=== PATIENT | female | born 1985 | race Caucasian/White ===

== ENCOUNTER 2017-11-06 13:01 | Emergency (ER) | payer OTHER ==
[2017-11-06 13:43] VITALS: BP 126/86; PULSE 62; TEMP 98.1; BMI 28.3
--- NOTE | 2017-11-06 15:14 | PDOC ---
History of Present Illness - General Chief Complaint: Bite Stated Complaint: INJURY Time Seen by Provider: 11/06/17 14:37 History Source: Patient Exam Limitations: No Limitations - History of Present Illness Initial Comments: 11/06/17 15:40 32-year-old female presents the ED with a white to the right fifth digit. Patient states she was cleaning at all that is routinely followed by the veterinary clinic when the dog bit her finger while washing him. Patient states dog is fully vaccinated including rabies and normally does not care for this dog. Patient states that today on her tetanus and denies history of immunosuppression. Patient states pain with movement and denies recent injury to the affected area. Timing/Duration: 1-3 hours Severity: mild Associated Symptoms: reports: denies symptoms Past History - Travel Traveled outside of the country in the last 30 days: No - Past Medical History Allergies/Adverse Reactions: Allergies Allergy/AdvReac Type Severity Reaction Status Date / Time No Known Allergies Allergy Verified 11/06/17 13:39 Home Medications: Ambulatory Orders NK [No Known Home Medication] 11/06/17 Asthma: Yes COPD: No - Reproductive History (#): 2 Para: 2 - Immunization History Immunization Up to Date: Yes - Suicide/Smoking/Psychosocial Hx Smoking History: Never smoked Have you smoked in the past 12 months: No Number of Cigarettes Smoked Daily: 0 Information on smoking cessation initiated: No Hx Alcohol Use: No Drug/Substance Use Hx: No Substance Use Type: None Patient Lives Alone: No Review of Systems - Review of Systems Able to Perform ROS?: Yes Constitutional: No: Symptoms Reported Musculoskeletal: Yes: Joint Pain (rt 5th finger) Integumentary: Yes: See HPI *Physical Exam - Vital Signs Last Vital Signs Temp Pulse Resp BP Pulse Ox 98.1 F 62 17 126/86 99 11/06/17 13:35 11/06/17 13:35 11/06/17 13:35 11/06/17 13:35 11/06/17 13:35 - Physical Exam General Appearance: Yes: Nourished, Appropriately Dressed. No: Apparent Distress Extremity: positive: Normal Capillary Refill, Other (Noted 2 cm linear superficial wound to the dorsal aspect of right fifth digit. Surrounding skin intact. No crepitus or deformity of the finger. Patient with noted discomfort upon flexion of the MCP joint.) Medical Decision Making - Medical Decision Making 11/06/17 15:42 Patient injury to his right fifth digit after being bitten by a domesticated dog. Paperwork completed. Patient was ordered for an x-ray of the right fifth digits secondary to location of bite and complains of pain with movement. 11/06/17 15:44 X-ray negative for fracture. Patient to be discharged home recommended to apply ice take Motrin and apply bacitracin to the area *DC/Admit/Observation/Transfer Diagnosis at time of Disposition: Dog bite of finger - Discharge Dispostion Disposition: HOME Condition at time of disposition: Good - Referrals Referrals: Dalila Waite [Primary Care Provider] - - Patient Instructions Printed Discharge Instructions: How to Care for a Domestic Animal Bite Additional Instructions: I recommended to apply ice to area x 3 days to decrease swelling, take Motrin as needed for pain, and apply bacitracin to the area x 3 days daily - Post Discharge Activity
== END 2017-11-06 15:50 | disposition home or self-care (01) ==
LOC: JERFT 13:01
DX: S60.476A Other superficial bite of right little finger, initial encounter (principal); W54.0XXA Bitten by dog, initial encounter; Y93.K3 Activity, grooming and shearing an animal; Y92.89 Other specified places as the place of occurrence of the external cause; Y99.0 Civilian activity done for income or pay
CPT/HCPCS: 73140-TC-RT; 99281-25

== ENCOUNTER 2017-11-15 03:04 | Emergency (ER) | payer OTHER ==
[2017-11-15 04:49] VITALS: TEMP 98.2; BMI 21.0
[2017-11-15] MEDS ORDERED: SODIUM CHLORIDE 1,000 ML IV STA (05:06)
[2017-11-15] MEDS ORDERED: ONDANSETRON 4 MG/2 ML VIAL IVPUSH ONE (05:06)
[2017-11-15 05:19] LABS: URINE APPEARANCE CLEAR; URINE BILIRUBIN NEGATIVE (NEGATIVE); URINE BLOOD 1+ (NEGATIVE); URINE COLOR LTYELLOW; URINE GLUCOSE (UA) NEGATIVE (NEGATIVE); URINE KETONE NEGATIVE (NEGATIVE); URINE NITRITE NEGATIVE (NEGATIVE); URINE PROTEIN NEGATIVE (NEGATIVE); URINE UROBILINOGEN NEGATIVE mg/dL (0.2-1.0)
[2017-11-15 05:22] LABS: URINE LEUK ESTERASE 1+ (NEGATIVE)
[2017-11-15 05:28] LABS: EPI CELLS RARE /HPF (FEW); URINE MUCUS RARE
[2017-11-15] MEDS ORDERED: ONDANSETRON 4 MG/2 ML VIAL ONE (05:30)
--- NOTE | 2017-11-15 05:47 | PDOC ---
History of Present Illness - General Chief Complaint: Pain, Acute Stated Complaint: ABDOMINAL PAIN Time Seen by Provider: 11/15/17 04:43 - History of Present Illness Initial Comments: 11/15/17 05:49 Patient is a 32-year-old female with past medical history of asthma, who presents emergency department complaining of abdominal pain. Patient states that she's had abdominal pain for approximately one week. She notes that it over her bladder. She states that it hurts when she pees and she sees blood in her urine. Also admits to frequency and urgency. She states that the pain in her abdomen his gotten worse. Patient states that the pain goes to her back. She also states that she has pain when she poops and she feels like there is a skin flap over the area. Denies fevers, chills, recent travel, recent antibiotic use, nausea, vomiting, diarrhea, constipation, shortness of breath and chest pain. Past History - Travel Traveled outside of the country in the last 30 days: No Close contact w/someone who was outside of country & ill: No - Past Medical History Allergies/Adverse Reactions: Allergies Allergy/AdvReac Type Severity Reaction Status Date / Time No Known Allergies Allergy Verified 11/06/17 13:39 Home Medications: Ambulatory Orders Nitrofurantoin Monohyd/M-Cryst [Macrobid -] 100 mg PO BID #14 capsule 11/15/17 Phenazopyridine HCl [Pyridium] 200 mg PO TID #6 tablet 11/15/17 Asthma: Yes COPD: No - Reproductive History Is Patient Now?: No (#): 2 Para: 2 - Immunization History Immunization Up to Date: Yes - Suicide/Smoking/Psychosocial Hx Smoking History: Never smoked Have you smoked in the past 12 months: No Number of Cigarettes Smoked Daily: 0 Hx Alcohol Use: No Drug/Substance Use Hx: No Substance Use Type: None Review of Systems - Review of Systems Able to Perform ROS?: Yes Comments:: 11/15/17 06:49 CONSTITUTIONAL: Absent: fever, chills, diaphoresis, generalized weakness, malaise, loss of appetite HEENT: Absent: rhinorrhea, nasal congestion, throat pain, throat swelling, difficulty swallowing, mouth swelling, ear pain, eye pain, visual Changes CARDIOVASCULAR: Absent: chest pain, loss of consciousness, palpitations, irregular heart rate, peripheral edema RESPIRATORY: Absent: cough, shortness of breath, dyspnea with exertion, orthopnea, wheezing, stridor, hemoptysis GASTROINTESTINAL: Absent: abdominal pain, abdominal distension, nausea, vomiting, diarrhea, constipation, melena, hematochezia GENITOURINARY: Present: dysuria, frequency, urgency, hesitancy, hematuria, flank pain Absent: genital pain MUSCULOSKELETAL: Absent: myalgia, arthralgia, joint swelling SKIN: Absent: rash, itching, pallor HEMATOLOGIC/IMMUNOLOGIC: Absent: easy bleeding, easy bruising, lymphadenopathy, frequent infections ENDOCRINE: Absent: unexplained weight gain, unexplained weight loss, heat intolerance, cold intolerance NEUROLOGIC: Absent: headache, focal weakness or paresthesias, dizziness, unsteady gait, seizure, mental status changes, bladder or bowel incontinence PSYCHIATRIC: Absent: anxiety, depression, suicidal or homicidal ideation, hallucinations. Is the patient limited Monegasque proficient: No *Physical Exam - Vital Signs Last Vital Signs Temp Pulse Resp BP Pulse Ox 98.2 F 71 111/83 98 11/15/17 04:46 11/15/17 04:46 11/15/17 04:46 11/15/17 04:46 - Physical Exam Comments: 11/15/17 06:49 GENERAL: Well developed, well nourished. Awake and alert. No acute distress. HEENT: Normocephalic, atraumatic. PERRLA, EOMI. No conjunctival pallor. Sclera are non- icteric. Moist mucous membranes. Oropharynx is clear. NECK: Supple. Full ROM. No JVD. Carotid pulses 2+ and symmetric, without bruits. No thyromegaly. No lymphadenopathy. CARDIOVASCULAR: Regular rate and rhythm. No murmurs, rubs, or gallops. Distal pulses are 2+ and symmetric. PULMONARY: No evidence of respiratory distress. Lungs clear to auscultation bilaterally. No wheezing, rales or rhonchi. ABDOMINAL: TTP of suprapubic area, LLQ, RLQ. (+) psoas and obturator signs. Guarding with palpation of the lower abdomen. Soft. Non-distended. No rebound. No organomegaly. Normoactive bowel sounds. MUSCULOSKELETAL CVA tenderness on the R. Normal range of motion at all joints. No bony deformities or tenderness. EXTREMITIES: No cyanosis. No clubbing. No edema. No calf tenderness. SKIN: Warm and dry. Normal capillary refill. No rashes. No jaundice. NEUROLOGICAL: Alert, awake, appropriate. Cranial nerves 2-12 intact. No deficits to light touch and temperature in face, upper extremities and lower extremities. No motor deficits in the in face, upper extremities and lower extremities. Normoreflexic in the upper and lower extremities. Normal speech. Toes are down- going bilaterally. Gait is normal without ataxia. PSYCHIATRIC: Cooperative. Good eye contact. Appropriate mood and affect. ED Treatment Course - LABORATORY CBC & Chemistry Diagram: 11/15/17 05:35 11/15/17 05:35 - ADDITIONAL ORDERS Additional order review: Laboratory Results 11/15/17 11/15/17 05:10 05:10 Urine Color Ltyellow Urine Appearance Clear Urine pH 6.0 Ur Specific [place] 1.014 Urine Protein Negative Urine Glucose (UA) Negative Urine Ketones Negative Urine Blood 1+ H Urine Nitrite Negative Urine Bilirubin Negative Urine Urobilinogen Negative Ur Leukocyte Esterase 1+ H D Urine WBC (Auto) 2 Urine RBC (Auto) 9 Ur Epithelial Cells Rare Urine Mucus Rare Urine HCG, Qual Negative - Medications Given in the ED: ED Medications Discontinued Medications Generic Name Dose Route Start Last Admin Trade Name Freq PRN Reason Stop Dose Admin Ondansetron HCl 4 mg 11/15/17 05:06 11/15/17 05:35 Zofran Injection IVPUSH 11/15/17 05:07 4 mg ONCE ONE Administration Medical Decision Making - Medical Decision Making 11/15/17 05:51 Patient is a 32-year-old female with past medical history of asthma who presents emergency Department 5 days of abdominal pain and urinary symptoms. Differential diagnosis includes but is not limited to UTI, kidney stone, pyelo, appendicitis, colitis, given peritoneal signs on exam. We'll obtain basic lab work, urine and CT abdomen and pelvis with IV contrast. Will reevaluate. 11/15/17 06:52 Lab work is unremarkable at this time. UA shows +1 leuk esterase with white blood cells in the urine. Patient has a probable UTI. We'll proceed with CT at this time this patient still has abdominal pain. Sign out given to Raiza Sarah [employer] FR[employer] ASSEMBLER. Pt. is pending CT scan and dispo based on scan results. *DC/Admit/Observation/Transfer Diagnosis at time of Disposition: UTI (urinary tract infection) - Discharge Dispostion Condition at time of disposition: Good - Prescriptions Prescriptions: Nitrofurantoin Monohyd/M-Cryst [Macrobid -] 100 mg PO BID #14 capsule Phenazopyridine HCl [Pyridium] 200 mg PO TID #6 tablet - Referrals Referrals: Dalila Waite [Primary Care Provider] - - Patient Instructions Printed Discharge Instructions: DI for Urinary Tract Infection (UTI) Additional Instructions: Take antibiotic as prescribed and take tylenol or motrin for pain. - Post Discharge Activity
[2017-11-15 05:48] LABS: BASO % 0.5 % (0-2.0); EOS % 5.3 % (0-4.5); HEMATOCRIT 39.8 % (32.4-45.2); HEMOGLOBIN 13.4 GM/dL (10.7-15.3); LYMPH % 35.2 % (8-40); MCH 30.9 pg (25.7-33.7); MCHC 33.6 g/dl (32.0-36.0); MEAN PLT VOLUME 10.3 fl (7.5-11.1); MONO % 5.9 % (3.8-10.2); NEUT % 53.1 % (42.8-82.8); PLATELET COUNT 190 K/MM3 (134-434); RBC 4.32 M/mm3 (3.60-5.2); RDW 12.8 % (11.6-15.6); WHITE BLOOD COUNT 6.5 K/mm3 (4.0-10.0)
[2017-11-15 06:01] LABS: INR 0.94 (0.82-1.09); PROTHROMBIN TIME (PATIENT) 10.6 SEC (9.98-11.88)
[2017-11-15 06:14] LABS: ALBUMIN 3.4 g/dl (3.4-5.0); ALK PHOS 93 U/L (45-117); ANION GAP 8 (8-16); BILIRUBIN,TOTAL 0.3 mg/dL (0.2-1.0); BLOOD UREA NITROGEN 8 mg/dL (7-18); CALCIUM 7.6 mg/dL (8.5-10.1); CHLORIDE 107 mmol/L (98-107); CO2 25 mmol/L (21-32); CREATININE 0.6 mg/dL (0.55-1.02); GLUCOSE,RANDOM 91 mg/dL (74-106); SGOT/AST 13 U/L (15-37); SGPT/ALT 22 U/L (12-78); SODIUM 140 mmol/L (136-145); TOT PROT 7.3 g/dl (6.4-8.2)
--- NOTE | 2017-11-15 07:29 | PDOC ---
*Physical Exam - Vital Signs Last Vital Signs Temp Pulse Resp BP Pulse Ox 98.2 F 71 111/83 98 11/15/17 04:46 11/15/17 04:46 11/15/17 04:46 11/15/17 04:46 ED Treatment Course - LABORATORY CBC & Chemistry Diagram: 11/15/17 05:35 11/15/17 05:35 - ADDITIONAL ORDERS Additional order review: Laboratory Results 11/15/17 11/15/17 11/15/17 05:39 05:35 05:35 PT with INR 10.60 INR 0.94 Sodium 140 Potassium 4.0 Chloride 107 Carbon Dioxide 25 Anion Gap 8 BUN 8 Creatinine 0.6 Creat Clearance w eGFR > 60 Random Glucose 91 Calcium 7.6 L Total Bilirubin 0.3 D AST 13 L ALT 22 Alkaline Phosphatase 93 Total Protein 7.3 Albumin 3.4 Lipase 178 Urine Color Urine Appearance Urine pH Ur Specific [place] Urine Protein Urine Glucose (UA) Urine Ketones Urine Blood Urine Nitrite Urine Bilirubin Urine Urobilinogen Ur Leukocyte Esterase Urine WBC (Auto) Urine RBC (Auto) Ur Epithelial Cells Urine Mucus Urine HCG, Qual 11/15/17 11/15/17 05:10 05:10 PT with INR INR Sodium Potassium Chloride Carbon Dioxide Anion Gap BUN Creatinine Creat Clearance w eGFR Random Glucose Calcium Total Bilirubin AST ALT Alkaline Phosphatase Total Protein Albumin Lipase Urine Color Ltyellow Urine Appearance Clear Urine pH 6.0 Ur Specific [place] 1.014 Urine Protein Negative Urine Glucose (UA) Negative Urine Ketones Negative Urine Blood 1+ H Urine Nitrite Negative Urine Bilirubin Negative Urine Urobilinogen Negative Ur Leukocyte Esterase 1+ H D Urine WBC (Auto) 2 Urine RBC (Auto) 9 Ur Epithelial Cells Rare Urine Mucus Rare Urine HCG, Qual Negative 11/15/17 05:35 RBC 4.32 MCV 92.0 MCHC 33.6 RDW 12.8 MPV 10.3 Neutrophils % 53.1 Lymphocytes % 35.2 Monocytes % 5.9 Eosinophils % 5.3 H D Basophils % 0.5 - Medications Given in the ED: ED Medications Discontinued Medications Generic Name Dose Route Start Last Admin Trade Name Freq PRN Reason Stop Dose Admin Sodium Chloride 1,000 mls @ 1,000 mls/hr 11/15/17 05:06 11/15/17 05:35 Normal Saline - IV 11/15/17 06:05 1,000 mls/hr ASDIR STA Administration Ondansetron HCl 4 mg 11/15/17 05:06 11/15/17 05:35 Zofran Injection IVPUSH 11/15/17 05:07 4 mg ONCE ONE Administration Medical Decision Making - Medical Decision Making 11/15/17 07:29 Patient received in sign out from GITA Snyder. Patient here with abdominal pain along with urinary complaints. Patient pending CT of the abdomen with IV contrast to rule out appendicitis, renal colic. 11/15/17 07:29 Laboratory Tests 11/15/17 05:10 Urine Blood 1+ H Ur Leukocyte Esterase 1+ H D Urine WBC (Auto) 2 Urine RBC (Auto) 9 11/15/17 10:31 Ct of the abdomen - for appendicitis or renal colic. Pt to be discharged home jesu gomez *DC/Admit/Observation/Transfer Diagnosis at time of Disposition: UTI (urinary tract infection) - Discharge Dispostion Condition at time of disposition: Good - Referrals Referrals: Dalila Waite [Primary Care Provider] - - Patient Instructions Printed Discharge Instructions: DI for Urinary Tract Infection (UTI) Additional Instructions: Take antibiotic as prescribed and take tylenol or motrin for pain. - Post Discharge Activity
[2017-11-15 10:50] VITALS: BP 124/74; PULSE 64
== END 2017-11-15 10:50 | disposition home or self-care (01) ==
LOC: JER 03:04
PROC: 3E033GC Introduction of Other Therapeutic Substance into Peripheral Vein, Percutaneous Approach (ICD-10-PCS; principal; 2017-11-15)
DX: N39.0 Urinary tract infection, site not specified (principal)
CPT/HCPCS: 36415; 74177-TC; 80053; 81003; 81015; 83690; 84703; 85025; 85610; 87086; 96374; 99285-25

== ENCOUNTER 2018-10-24 21:56 | Emergency (ER) | payer OTHER ==
[2018-10-24 22:09] VITALS: BP 115/65; PULSE 91; TEMP 98; BMI 28.3
--- NOTE | 2018-10-24 22:46 | PDOC ---
History of Present Illness - General History Source: Patient Exam Limitations: No Limitations - History of Present Illness Initial Comments: 10/24/18 22:56 The patient is a 33 year old female, , with a significant PMH of asthma who presents to the emergency department with lower back pain radiating to the back of the bilateral lower extremities since yesterday. Patient states the lower back pain is exacerbated when bending over and alleviated when sitting or lying flat. 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 Patient saw her INSTRUCTIONAL PARAPROFESSIONAL approximately 1 week and had an ultrasound then. Patient reports she is 10 weeks . The patient admits to mild vaginal spotting today but denies chest pain, shortness of breath, headache and dizziness. Denies fever, chills, nausea, vomit, diarrhea and constipation. Denies dysuria, frequency, urgency and hematuria. Allergies: NKA Past surgical history: None reported. Social history: No reported alcohol, drug or cigarette use. INSTRUCTIONAL PARAPROFESSIONAL: Dr. Zelaya <Penny Goncalves - Last Filed: 10/24/18 22:56> <Ceci Wilson - Last Filed: 10/25/18 06:59> - General Chief Complaint: Back Pain Stated Complaint: BACK PAIN @ 10WKS PREG Time Seen by Provider: 10/24/18 22:45 Past History <Penny Goncalves - Last Filed: 10/24/18 22:56> - Past Medical History Asthma: Yes COPD: No - Reproductive History (#): 2 Para: 2 - Immunization History Immunization Up to Date: Yes - Suicide/Smoking/Psychosocial Hx Smoking History: Never smoked Have you smoked in the past 12 months: No Number of Cigarettes Smoked Daily: 0 Information on smoking cessation initiated: No Hx Alcohol Use: No Drug/Substance Use Hx: No Substance Use Type: None <Ceci Wilson - Last Filed: 10/25/18 06:59> - Past Medical History Allergies/Adverse Reactions: Allergies Allergy/AdvReac Type Severity Reaction Status Date / Time No Known Allergies Allergy Verified 10/24/18 22:09 Home Medications: Ambulatory Orders Nitrofurantoin Monohyd/M-Cryst [Macrobid -] 100 mg PO BID #14 capsule 11/15/17 Phenazopyridine HCl [Pyridium] 200 mg PO TID #6 tablet 11/15/17 Review of Systems - Review of Systems Able to Perform ROS?: Yes Comments:: 10/24/18 23:01 ADULT ROS GENERAL/CONSTITUTIONAL: No fever or chills. No weakness. HEAD, EYES, EARS, NOSE AND THROAT: No change in vision. No ear pain or discharge. No sore throat. CARDIOVASCULAR: No chest pain or shortness of breath. RESPIRATORY: No cough, wheezing, or hemoptysis. GASTROINTESTINAL: No nausea, vomiting, diarrhea or constipation. GENITOURINARY: No dysuria, frequency, or change in urination. MUSCULOSKELETAL: (+) lower back pain radiating to the backs of both legs. SKIN: No rash NEUROLOGIC: No headache, vertigo, loss of consciousness, or change in strength/ sensation. ENDOCRINE: No increased thirst. No abnormal weight change. HEMATOLOGIC/LYMPHATIC: No anemia, easy bleeding, or history of blood clots. ALLERGIC/IMMUNOLOGIC: No hives or skin allergy. <Penny Goncalves - Last Filed: 10/24/18 22:56> *Physical Exam - Vital Signs Last Vital Signs Temp Pulse Resp BP Pulse Ox 98.0 F 91 H 16 115/65 100 10/24/18 22:07 10/24/18 22:07 10/24/18 22:07 10/24/18 22:07 10/24/18 22:07 - Physical Exam Comments: 10/24/18 23:02 ADULT EXAM GENERAL: Awake, alert, and fully oriented, in no acute distress HEAD: No signs of trauma EYES: PERRLA, EOMI, sclera anicteric, conjunctiva clear ENT: Auricles normal inspection, hearing grossly normal, nares patent, oropharynx clear without exudates. Moist mucosa NECK: Normal ROM, supple, no lymphadenopathy, JVD, or masses LUNGS: Breath sounds equal, clear to auscultation bilaterally. No wheezes, and no crackles HEART: Regular rate and rhythm, normal S1 and S2, no murmurs, rubs or gallops BACK: No flank pain. No spinal tenderness. ABDOMEN: Soft, nontender, normoactive bowel sounds. No guarding, no rebound. No masses EXTREMITIES: Normal range of motion, no edema. No clubbing or cyanosis. No cords, erythema, or tenderness NEUROLOGICAL: Cranial nerves II through XII grossly intact. (+) Straight leg raise with pain running down the backs of both legs at 45 degrees. SKIN: Warm, Dry, normal turgor, no rashes or lesions noted. <Penny Goncalves - Last Filed: 10/24/18 22:56> - Vital Signs Last Vital Signs Temp Pulse Resp BP Pulse Ox 98.0 F 91 H 16 115/65 100 10/24/18 22:07 10/24/18 22:07 10/24/18 22:07 10/24/18 22:07 10/24/18 22:07 <Ceci Wilson - Last Filed: 10/25/18 06:59> Moderate Sedation - Procedure Monitoring Vital Signs: Procedure Monitoring Vital Signs Temperature 98.0 F 10/24/18 22:07 Pulse Rate 91 H 10/24/18 22:07 Respiratory Rate 16 10/24/18 22:07 Blood Pressure 115/65 10/24/18 22:07 O2 Sat by Pulse Oximetry (%) 100 10/24/18 22:07 <Penny Goncalves - Last Filed: 10/24/18 22:56> - Procedure Monitoring Vital Signs: Procedure Monitoring Vital Signs Temperature 98.0 F 10/24/18 22:07 Pulse Rate 91 H 10/24/18 22:07 Respiratory Rate 16 10/24/18 22:07 Blood Pressure 115/65 10/24/18 22:07 O2 Sat by Pulse Oximetry (%) 100 10/24/18 22:07 <Ceci Wilson - Last Filed: 10/25/18 06:59> ED Treatment Course - LABORATORY CBC & Chemistry Diagram: 10/24/18 23:25 10/24/18 23:25 <Ceci Wilson - Last Filed: 10/25/18 06:59> Medical Decision Making - Medical Decision Making 10/25/18 06:58 O positive bloood type; pt given tylenol for the back pain and asked to follow with neurology; bedisde sono shows a fetus with good Heart tones.; Exam normal. No vag bleeding at this time. UA normal. <Ceci Wilson - Last Filed: 10/25/18 06:59> *DC/Admit/Observation/Transfer - Attestations Scribe Attestion: 10/24/18 23:03 Documentation prepared by Penny Goncalves, acting as medical administrative specialist for Ceci Wilson MD. <Penny Goncalves - Last Filed: 10/24/18 22:56> - Discharge Dispostion Decision to Admit order: No <Ceci Wilson - Last Filed: 10/25/18 06:59> Diagnosis at time of Disposition: Sciatica - Discharge Dispostion Disposition: HOME Condition at time of disposition: Improved - Referrals Referrals: Dalila Waite [Primary Care Provider] - Jony Stewart MD [Staff Physician] - - Patient Instructions Printed Discharge Instructions: DI for Sciatica - Post Discharge Activity
[2018-10-24 23:48] LABS: BASO % 0.5 % (0-2.0); EOS % 2.6 % (0-4.5); HEMATOCRIT 35.2 % (32.4-45.2); HEMOGLOBIN 12.6 GM/dL (10.7-15.3); LYMPH % 19.2 % (8-40); MCH 32.4 pg (25.7-33.7); MEAN PLT VOLUME 10.3 fl (7.5-11.1); MONO % 5.5 % (3.8-10.2); NEUT % 72.2 % (42.8-82.8); PLATELET COUNT 159 K/MM3 (134-434); RBC 3.91 M/mm3 (3.60-5.2); RDW 13.2 % (11.6-15.6); WHITE BLOOD COUNT 8.2 K/mm3 (4.0-10.0)
[2018-10-24] MEDS ORDERED: ACETAMINOPHEN 325 MG TABLET (FP) PO ONE (23:50)
[2018-10-24] MEDS ORDERED: POLYETHYLENE GLYCOL 3350 119 GM BTL PO ONE (23:56)
[2018-10-25] MEDS ORDERED: ACETAMINOPHEN 325 MG TABLET (FP) ONE (00:02)
[2018-10-25 00:56] LABS: ALBUMIN 3.4 g/dl (3.4-5.0); ALK PHOS 96 U/L (45-117); ANION GAP 8 MMOL/L (8-16); BILIRUBIN,TOTAL 0.6 mg/dL (0.2-1); BLOOD UREA NITROGEN 12 mg/dL (7-18); CALCIUM 8.2 mg/dL (8.5-10.1); CHLORIDE 106 mmol/L (98-107); CO2 22 mmol/L (21-32); CREATININE 0.7 mg/dL (0.55-1.3); GLUCOSE,RANDOM 91 mg/dL (74-106); POTASSIUM 3.6 mmol/L (3.5-5.1); SGOT/AST 16 U/L (15-37); SGPT/ALT 17 U/L (13-61); SODIUM 136 mmol/L (136-145); TOT PROT 6.8 g/dl (6.4-8.2)
[2018-10-25 01:20] LABS: URINE APPEARANCE SLCLOUDY; URINE BILIRUBIN NEGATIVE (<2.0 mg/dL); URINE COLOR LTYELLOW; URINE GLUCOSE (UA) NEGATIVE (NEGATIVE); URINE KETONE NEGATIVE (NEGATIVE); URINE LEUK ESTERASE TRACE (NEGATIVE); URINE NITRITE NEGATIVE (NEGATIVE); URINE PROTEIN NEGATIVE (NEGATIVE); URINE UROBILINOGEN NEGATIVE mg/dL (0.2-1.0)
[2018-10-25 01:35] LABS: EPI CELLS RARE /HPF (FEW); URINE BACTERIA RARE /hpf (NONE SEEN); URINE MUCUS RARE
== END 2018-10-25 02:35 | disposition home or self-care (01) ==
LOC: JER 21:56
PROC: BY49ZZZ Ultrasonography of First Trimester, Single Fetus (ICD-10-PCS; principal; 2018-10-24)
DX: O26.891 Other specified pregnancy related conditions, first trimester (principal); O99.351 Diseases of the nervous system complicating pregnancy, first trimester; M54.42 Lumbago with sciatica, left side; M54.41 Lumbago with sciatica, right side; Z3A.10 10 weeks gestation of pregnancy
CPT/HCPCS: 36415; 76801-TC; 80053; 81003; 81015; 85025; 86850; 86900; 86901; 99282-25

== ENCOUNTER 2018-12-13 | Emergency (ER) | payer OTHER ==
[2018-12-13 00:34] VITALS: BP 128/77; PULSE 77; TEMP 98.4; BMI 36.2
--- NOTE | 2018-12-13 00:49 | PDOC ---
History of Present Illness - History of Present Illness Initial Comments: The patient is a 33 year old female, , currently 18 weeks, with a significant PMHx of asthma who presents to the emergency department with vaginal bleeding, cramping earlier today. Patient states that earlier she went to the bathroom and noted stringy clots after wiping. She also notes 1 episode of nbnn vomit. uncomplicated otherwise. The patient denies chest pain, shortness of breath, headache and dizziness. Denies fever, chills, nausea, diarrhea and constipation. Denies dysuria, frequency, urgency. Allergies: NKA Past surgical history: None reported. Social history: No reported alcohol, drug or cigarette use. PCP: Dr. Zelaya <Destinee Mcgovern - Last Filed: 12/13/18 01:33> <Mandie Quezada - Last Filed: 12/14/18 01:30> - General Chief Complaint: Vaginal Bleeding Stated Complaint: 17 WEEKS /VAGINAL BLEEDING Time Seen by Provider: 12/13/18 00:35 Past History <Destinee Mcgovern - Last Filed: 12/13/18 01:33> - Past Medical History Asthma: Yes COPD: No - Reproductive History (#): 2 Para: 2 Therapeutic (s) & number: No Spontaneous : 0 - Immunization History Immunization Up to Date: Yes - Suicide/Smoking/Psychosocial Hx Smoking History: Unknown if ever smoked Have you smoked in the past 12 months: No Number of Cigarettes Smoked Daily: 0 Hx Alcohol Use: No Drug/Substance Use Hx: No Substance Use Type: None <Mandie Quezada - Last Filed: 12/14/18 01:30> - Past Medical History Allergies/Adverse Reactions: Allergies Allergy/AdvReac Type Severity Reaction Status Date / Time No Known Allergies Allergy Verified 10/24/18 22:09 Home Medications: Ambulatory Orders Nitrofurantoin Monohyd/M-Cryst [Macrobid -] 100 mg PO BID #14 capsule 11/15/17 Phenazopyridine HCl [Pyridium] 200 mg PO TID #6 tablet 11/15/17 Review of Systems - Review of Systems Comments:: GENERAL/CONSTITUTIONAL: No fever or chills. No weakness. HEAD, EYES, EARS, NOSE AND THROAT: No change in vision. No ear pain or discharge. No sore throat. CARDIOVASCULAR: No chest pain or shortness of breath. RESPIRATORY: No cough, wheezing, or hemoptysis. GASTROINTESTINAL: +pelvic cramping. No nausea, vomiting, diarrhea or constipation. GENITOURINARY: +vaginal bleeding. No dysuria, frequency, or change in urination. MUSCULOSKELETAL: No joint or muscle swelling or pain. No neck or back pain. SKIN: No rash NEUROLOGIC: No headache, vertigo, loss of consciousness, or change in strength/ sensation. ENDOCRINE: No increased thirst. No abnormal weight change. HEMATOLOGIC/LYMPHATIC: No anemia, easy bleeding, or history of blood clots. ALLERGIC/IMMUNOLOGIC: No hives or skin allergy. <Destinee Mcgovern - Last Filed: 12/13/18 01:33> *Physical Exam - Vital Signs Last Vital Signs Temp Pulse Resp BP Pulse Ox 98.4 F 77 20 128/77 99 12/13/18 00:32 12/13/18 00:32 12/13/18 00:32 12/13/18 00:32 12/13/18 00:32 <Destinee Mcgovern - Last Filed: 12/13/18 01:33> - Vital Signs Last Vital Signs Temp Pulse Resp BP Pulse Ox 98.4 F 77 20 128/77 99 12/13/18 00:32 12/13/18 00:32 12/13/18 00:32 12/13/18 00:32 12/13/18 00:32 - Physical Exam Comments: GENERAL: Awake, alert, and fully oriented, in no acute distress HEAD: No signs of trauma EYES: PERRLA, EOMI, sclera anicteric, conjunctiva clear ENT: Auricles normal inspection, hearing grossly normal, nares patent, oropharynx clear without exudates. Dry mucosa NECK: Normal ROM, supple, no lymphadenopathy, JVD, or masses LUNGS: Breath sounds equal, clear to auscultation bilaterally. No wheezes, and no crackles HEART: Regular rate and rhythm, normal S1 and S2, no murmurs, rubs or gallops ABDOMEN: Soft, nontender, normoactive bowel sounds. No guarding, no rebound. No masses EXTREMITIES: Normal range of motion, no edema. No clubbing or cyanosis. No cords, erythema, or tenderness NEUROLOGICAL: Cranial nerves II through XII grossly intact. Normal speech, normal gait. Motor and sensation intact SKIN: Warm, Dry, normal turgor, no rashes or lesions noted. : No external lesions. Trace blood in the vault. Os closed. Mild uterine tenderness. <Mandie Quezada - Last Filed: 12/14/18 01:30> Moderate Sedation - Procedure Monitoring Vital Signs: Procedure Monitoring Vital Signs Temperature 98.4 F 12/13/18 00:32 Pulse Rate 77 12/13/18 00:32 Respiratory Rate 20 12/13/18 00:32 Blood Pressure 128/77 12/13/18 00:32 O2 Sat by Pulse Oximetry (%) 99 12/13/18 00:32 <Destinee Mcgovern - Last Filed: 12/13/18 01:33> - Procedure Monitoring Vital Signs: Procedure Monitoring Vital Signs Temperature 98.4 F 12/13/18 00:32 Pulse Rate 77 12/13/18 00:32 Respiratory Rate 20 12/13/18 00:32 Blood Pressure 128/77 12/13/18 00:32 O2 Sat by Pulse Oximetry (%) 99 12/13/18 00:32 <Mandie Quezada - Last Filed: 12/14/18 01:30> ED Treatment Course - LABORATORY CBC & Chemistry Diagram: 12/13/18 01:05 12/13/18 01:05 <Destinee Mcgovern - Last Filed: 12/13/18 01:33> - LABORATORY CBC & Chemistry Diagram: 12/13/18 01:05 12/13/18 01:05 <Mandie Quezada - Last Filed: 12/14/18 01:30> Medical Decision Making - Medical Decision Making 12/13/18 01:00 Pt currently approx 18 WGA with episode of bleeding, associated with episode of vomiting and cramping since then. She appears mildly dehydrated on exam. Will give IV fluids and send for ultrasound. <Mandie Quezada - Last Filed: 12/14/18 01:30> *DC/Admit/Observation/Transfer - Attestations Scribe Attestion: 12/13/18 01:03 Documentation prepared by Destinee Mcgovern, acting as medical transport specialist for Mandie Quezada MD. <Destinee Mcgovern - Last Filed: 12/13/18 01:33> <Mandie Quezada - Last Filed: 12/14/18 01:30> Diagnosis at time of Disposition: Threatened - Discharge Dispostion Disposition: HOME Condition at time of disposition: Stable - Referrals Referrals: Dalila Waite [Primary Care Provider] - - Patient Instructions Printed Discharge Instructions: DI for Threatened - Post Discharge Activity
[2018-12-13] MEDS ORDERED: ACETAMINOPHEN 1000 MG/100 ML VIAL (NON FORMULARY) IVPB ONE (00:56)
[2018-12-13] MEDS ORDERED: SODIUM CHLORIDE 1,000 ML IV STA (00:57)
[2018-12-13] MEDS ORDERED: ACETAMINOPHEN INJECTION 100 ML IVPB ONE (01:09)
[2018-12-13 01:18] LABS: BASO % 0.9 % (0-2.0); EOS % 3.3 % (0-4.5); HEMATOCRIT 36.6 % (32.4-45.2); HEMOGLOBIN 13.1 GM/dL (10.7-15.3); LYMPH % 31.6 % (8-40); MCH 32.9 pg (25.7-33.7); MCHC 35.8 g/dl (32.0-36.0); MEAN CELL VOLUME 91.9 fl (80-96); MEAN PLT VOLUME 10.1 fl (7.5-11.1); MONO % 5.7 % (3.8-10.2); NEUT % 58.5 % (42.8-82.8); PLATELET COUNT 179 K/MM3 (134-434); RBC 3.98 M/mm3 (3.60-5.2); RDW 12.9 % (11.6-15.6); WHITE BLOOD COUNT 7.9 K/mm3 (4.0-10.0)
[2018-12-13 02:05] LABS: ALBUMIN 3.1 g/dl (3.4-5.0); ALK PHOS 84 U/L (45-117); ANION GAP 6 MMOL/L (8-16); BILIRUBIN,TOTAL 0.1 mg/dL (0.2-1); BLOOD UREA NITROGEN 8 mg/dL (7-18); CALCIUM 8.3 mg/dL (8.5-10.1); CHLORIDE 108 mmol/L (98-107); CO2 25 mmol/L (21-32); CREATININE 0.5 mg/dL (0.55-1.3); GLUCOSE,RANDOM 93 mg/dL (74-106); POTASSIUM 3.7 mmol/L (3.5-5.1); SGOT/AST 15 U/L (15-37); SGPT/ALT 15 U/L (13-61); SODIUM 138 mmol/L (136-145); TOT PROT 6.7 g/dl (6.4-8.2)
--- NOTE | 2018-12-13 03:27 | PDOC ---
*Physical Exam - Vital Signs Last Vital Signs Temp Pulse Resp BP Pulse Ox 98.4 F 77 20 128/77 99 12/13/18 00:32 12/13/18 00:32 12/13/18 00:32 12/13/18 00:32 12/13/18 00:32 ED Treatment Course - LABORATORY CBC & Chemistry Diagram: 12/13/18 01:05 12/13/18 01:05 - ADDITIONAL ORDERS Additional order review: Laboratory Results 12/13/18 01:05 Sodium 138 Potassium 3.7 Chloride 108 H Carbon Dioxide 25 Anion Gap 6 L BUN 8 Creatinine 0.5 L Creat Clearance w eGFR > 60 Random Glucose 93 Calcium 8.3 L Total Bilirubin 0.1 L AST 15 ALT 15 Alkaline Phosphatase 84 Total Protein 6.7 Albumin 3.1 L Beta HCG, Quant 8293.0 12/13/18 01:05 RBC 3.98 MCV 91.9 MCHC 35.8 RDW 12.9 MPV 10.1 Neutrophils % 58.5 Lymphocytes % 31.6 D Monocytes % 5.7 Eosinophils % 3.3 Basophils % 0.9 - Medications Given in the ED: ED Medications Discontinued Medications Generic Name Dose Route Start Last Admin Trade Name Freq PRN Reason Stop Dose Admin Acetaminophen 1,000 mg 12/13/18 00:56 12/13/18 01:18 Ofirmev Injection - IVPB 12/13/18 00:57 1,000 mg ONCE ONE Administration Sodium Chloride 1,000 mls @ 1,000 mls/hr 12/13/18 00:57 12/13/18 01:18 Normal Saline - IV 12/13/18 01:56 1,000 mls/hr ASDIR STA Administration Medical Decision Making - Medical Decision Making 12/13/18 03:27 Patient Name: TARA REED THIS IS A PRELIMINARY REPORT FROM [facility] DATE OF SERVICE: 2018-12-13 01:30:55 IMAGES: 14 EXAM: Post first trimester obstetrical sonogram. Clinical indication: Vaginal bleeding. There are no prior recent studies available for comparison. Findings: There is a single live intrauterine gestation in cephalic presentation. A heart rate of 143 bpm was obtained. Multiple measurements including biparietal diameter, head circumference, abdominal circumference, and femur length were obtained which correspond to an expected gestational age of 17 weeks 1 day and an expected date of delivery of May 22, 2019. The placenta is posterior. The relationship to the cervix is not well visualized on these images. The amount of amniotic fluid is within normal limits. Impression: Single live intrauterine gestation with measurements as described above. *DC/Admit/Observation/Transfer Diagnosis at time of Disposition: Threatened - Discharge Dispostion Disposition: HOME Condition at time of disposition: Stable Decision to Admit order: No - Referrals Referrals: Dalila Waite [Primary Care Provider] - - Patient Instructions Printed Discharge Instructions: DI for Threatened - Post Discharge Activity
== END 2018-12-13 03:38 | disposition home or self-care (01) ==
LOC: JER
PROC: 3E0337Z Introduction of Electrolytic and Water Balance Substance into Peripheral Vein, Percutaneous Approach (ICD-10-PCS; principal; 2018-12-13)
PROC: 3E033NZ Introduction of Analgesics, Hypnotics, Sedatives into Peripheral Vein, Percutaneous Approach (ICD-10-PCS; 2018-12-13)
DX: O26.892 Other specified pregnancy related conditions, second trimester (principal); Z3A.17 17 weeks gestation of pregnancy
CPT/HCPCS: 36415; 76815-TC; 80053; 84702; 85025; 96361; 96374; 99282-25; J0131; J7030

== ENCOUNTER 2021-08-14 05:31 | Emergency (ER) | payer OTHER ==
[2021-08-14 05:57] VITALS: TEMP 97.2; BMI 34.0
[2021-08-14] MEDS ORDERED: DEXAMETHASONE SOD PHOSPHATE 10 MG/1 ML VIAL IVPUSH ONE (06:03)
[2021-08-14] MEDS ORDERED: FAMOTIDINE 20 MG/50 ML IVPB 20 MG/50 ML MG IVPB ONE ×2 (06:04→06:09)
[2021-08-14] MEDS ORDERED: DEXAMETHASONE SOD PHOSPHATE 10 MG/1 ML VIAL ONE (06:09)
[2021-08-14] MEDS ORDERED: MECLIZINE HCL 12.5 MG TABLET PO ONE (07:58)
[2021-08-14] MEDS ORDERED: SODIUM CHLORIDE 1,000 ML IV STA (07:58)
[2021-08-14 09:24] VITALS: BP 109/70; PULSE 50
== END 2021-08-14 09:25 | disposition home or self-care (01) ==
LOC: JER 05:31
PROC: 3E033GC Introduction of Other Therapeutic Substance into Peripheral Vein, Percutaneous Approach (ICD-10-PCS; principal; 2021-08-14)
PROC: 3E033GC Introduction of Other Therapeutic Substance into Peripheral Vein, Percutaneous Approach (ICD-10-PCS; 2021-08-14)
PROC: 3E033GC Introduction of Other Therapeutic Substance into Peripheral Vein, Percutaneous Approach (ICD-10-PCS; 2021-08-14)
PROC: 3E0337Z Introduction of Electrolytic and Water Balance Substance into Peripheral Vein, Percutaneous Approach (ICD-10-PCS; 2021-08-14)
DX: L50.0 Allergic urticaria (principal)
CPT/HCPCS: 99284-25; J1100

== ENCOUNTER 2023-02-17 20:20 | Emergency (ER) | payer OTHER ==
[2023-02-17 20:38] VITALS: BP 124/67; PULSE 57; RESP 18; TEMP 98.5; BMI 33.5
== END 2023-02-18 01:02 | disposition left against medical advice (07) ==
LOC: JER 20:20
DX: R51.9 Headache, unspecified (principal)
CPT/HCPCS: 99281-25

== ENCOUNTER 2023-02-18 05:22 | Emergency (ER) | payer OTHER ==
[2023-02-18 05:30] VITALS: BMI 33.5
[2023-02-18] MEDS ORDERED: LIDOCAINE 5% TOPICAL PATCH TP ONE (05:54)
[2023-02-18] MEDS ORDERED: ACETAMINOPHEN 325 MG TABLET (FP) PO ONE (05:54)
[2023-02-18] MEDS ORDERED: LIDOCAINE 5% TOPICAL PATCH ONE (06:10)
[2023-02-18] MEDS ORDERED: ACETAMINOPHEN 325 MG TABLET (FP) ONE (06:10)
[2023-02-18] MEDS ORDERED: METHOCARBAMOL 500 MG TABLET PO ONE (07:34)
[2023-02-18] MEDS ORDERED: diazePAM 2 MG TABLET PO ONE (07:41)
[2023-02-18] MEDS ORDERED: diazePAM 2 MG TABLET ONE (07:49)
[2023-02-18] MEDS ORDERED: KETOROLAC TROMETHAMINE 15 MG/ML VIAL IM ONE (08:50)
[2023-02-18] MEDS ORDERED: KETOROLAC TROMETHAMINE 15 MG/ML VIAL ONE (09:21)
[2023-02-18 09:31] VITALS: BP 110/76; PULSE 66; RESP 16; TEMP 98
[2023-02-18] MEDS ORDERED: LIDOCAINE PATCH REMOVAL MC ONE (18:00)
== END 2023-02-18 09:34 | disposition home or self-care (01) ==
LOC: JER 05:22
PROC: 3E0233Z Introduction of Anti-inflammatory into Muscle, Percutaneous Approach (ICD-10-PCS; principal; 2023-02-18)
DX: S46.811A Strain of other muscles, fascia and tendons at shoulder and upper arm level, right arm, initial encounter (principal); Y99.9 Unspecified external cause status
CPT/HCPCS: 84703; 99284-25

== ENCOUNTER 2023-11-01 20:45 | Emergency (ER) | payer OTHER ==
[2023-11-01 20:50] VITALS: BMI 33.5
[2023-11-01] MEDS ORDERED: KETOROLAC TROMETHAMINE 30 MG/1 ML VIAL IM ONE (21:17)
[2023-11-01] MEDS ORDERED: ACETAMINOPHEN 1000 MG/100 ML BAG IVPB ONE (21:20)
[2023-11-01] MEDS ORDERED: SODIUM CHLORIDE 0.9% 500 ML INFUS.BAG IV ONE (21:20)
[2023-11-01] MEDS ORDERED: METOCLOPRAMIDE HCL INJECTION 10 MG/2 ML VIAL IVPUSH ONE (21:20)
[2023-11-01] MEDS ORDERED: LIDOCAINE 4% PATCH TP ONE ×2 (21:28→22:01)
[2023-11-01] MEDS ORDERED: METOCLOPRAMIDE HCL INJECTION 10 MG/2 ML VIAL ONE (22:00)
[2023-11-01] MEDS ORDERED: ACETAMINOPHEN INJECTION 100 ML IVPB ONE (22:01)
[2023-11-01 22:18] LABS: BASO % 1.1 % (0-2.0); EOS % 3.3 % (0-4.5); HEMATOCRIT 38.5 % (32.4-45.2); HEMOGLOBIN 12.8 GM/dL (10.7-15.3); LYMPH % 33.3 % (8-40); MCH 29.9 pg (25.7-33.7); MCHC 33.2 g/dl (32.0-36.0); MEAN CELL VOLUME 89.9 fl (80-96); MEAN PLT VOLUME 8.8 fl (7.5-11.1); MONO % 6.5 % (3.8-10.2); NEUT % 55.8 % (42.8-82.8); PLATELET COUNT 325 10^3/uL (134-434); RBC 4.28 M/mm3 (3.60-5.2); RDW 12.9 % (11.6-15.6); WHITE BLOOD COUNT 8.1 K/mm3 (4.0-10.0)
[2023-11-01 22:44] LABS: POTASSIUM 3.6 mmol/L (3.5-5.1)
[2023-11-01 22:46] LABS: ALBUMIN 3.4 g/dl (3.4-5.0); BLOOD UREA NITROGEN 11.3 mg/dL (7-18); CALCIUM 8.6 mg/dL (8.5-10.1)
[2023-11-01 22:49] LABS: CREATININE 0.8 mg/dL (0.55-1.3)
[2023-11-01 22:51] LABS: BILIRUBIN,TOTAL 0.2 mg/dL (0.2-1); TOT PROT 7.5 g/dl (6.4-8.2)
[2023-11-01] MEDS ORDERED: POTASSIUM CHLORIDE TABS 20 MEQ TABLET.ER (FP) PO ONE ×2 (22:52→23:11)
[2023-11-01] MEDS ORDERED: MAGNESIUM SULF 50% (8.12 MEQ/2 ML-1 GM VIAL) IVPB ONE (22:52)
[2023-11-01] MEDS ORDERED: MAGNESIUM SULFATE IN WATER 2 GM/50 ML IVPB IVPB ONE (23:11)
[2023-11-01 23:56] VITALS: BP 136/72; PULSE 64; RESP 18; TEMP 98.6
[2023-11-02] MEDS ORDERED: LIDOCAINE PATCH REMOVAL MC ONE (09:00)
== END 2023-11-01 23:56 | disposition home or self-care (01) ==
LOC: JER 20:45
PROC: 3E033NZ Introduction of Analgesics, Hypnotics, Sedatives into Peripheral Vein, Percutaneous Approach (ICD-10-PCS; principal; 2023-11-01)
PROC: 3E033GC Introduction of Other Therapeutic Substance into Peripheral Vein, Percutaneous Approach (ICD-10-PCS; 2023-11-01)
PROC: 3E033GC Introduction of Other Therapeutic Substance into Peripheral Vein, Percutaneous Approach (ICD-10-PCS; 2023-11-01)
DX: R07.89 Other chest pain (principal); S16.1XXA Strain of muscle, fascia and tendon at neck level, initial encounter; M54.2 Cervicalgia; R51.9 Headache, unspecified; X58.XXXA Exposure to other specified factors, initial encounter; Z20.822 Contact with and (suspected) exposure to COVID-19
CPT/HCPCS: 0241U-QW; 36415; 71046-TC-FY; 80053; 84484; 84703; 85025; 85379; 93005; 93010; 99285-25

== ENCOUNTER 2025-08-14 01:14 | Emergency (ER) | payer OTHER ==
[2025-08-14 01:29] VITALS: BP 127/63; PULSE 74; RESP 18; TEMP 98.2; BMI 28.9
[2025-08-14] MEDS ORDERED: PANTOPRAZOLE SODIUM 40 MG VIAL ONE (01:52)
[2025-08-14] MEDS ORDERED: ACETAMINOPHEN INJECTION 100 ML ONE (01:52)
[2025-08-14] MEDS ORDERED: MAG HYDROX/AL HYDROX/SIMETH 30 ML UNIT-DOSE CUP ONE (01:52)
[2025-08-14] MEDS ORDERED: ONDANSETRON 4 MG/2 ML VIAL ONE (01:52)
[2025-08-14] MEDS: MAG HYDROX/AL HYDROX/SIMETH 30 ML UNIT-DOSE CUP PO ONE (02:01)
[2025-08-14] MEDS: ONDANSETRON 4 MG/2 ML VIAL IVPB ONE (02:20)
[2025-08-14] MEDS: ACETAMINOPHEN 1000 MG/100 ML BAG IVPB ONE (02:20)
[2025-08-14] MEDS: PANTOPRAZOLE SODIUM 40 MG VIAL IVPUSH ONE (02:20)
[2025-08-14 02:25] LABS: ABSOLUTE IMMATURE GRANULOCYTES 0.01 x10^3/uL (0.0-0.031); BASOPHILS # 0.07 x10^3/uL (0.01-0.08); EOSINOPHIL % 4.6 % (0.7-5.8); EOSINOPHILS # 0.30 x10^3/uL (0.04-0.36); MCHC 32.0 g/dl (32.2-35.5); MEAN CELL VOLUME 94.0 fl (79.4-94.8); MEAN PLT VOLUME 11.5 fl (9.4-12.3); MONOCYTE # 0.40 x10^3/uL (0.24-0.86); MONOCYTE % 6.1 % (4.7-12.5); RDW 12.7 % (12.2-17.1)
[2025-08-14 02:46] LABS: GLUCOSE,RANDOM 113.0 mg/dL (74-106); TOT PROT 6.7 g/dl (6.4-8.2)
[2025-08-14 02:47] LABS: CO2 20.0 mmol/L (21-32)
[2025-08-14 02:49] LABS: ALK PHOS 94.0 U/L (40-150)
[2025-08-14 02:52] LABS: CREATININE 0.71 mg/dL (0.55-1.3); SGOT/AST 33.0 U/L (5-34); SGPT/ALT 25.0 U/L (0-55)
[2025-08-14 03:01] LABS: URINE APPEARANCE Clear; URINE BILIRUBIN Negative (NEGATIVE); URINE COLOR Yellow; URINE GLUCOSE (UA) Negative (NEGATIVE); URINE KETONE Negative (NEGATIVE); URINE LEUK ESTERASE Trace (NEGATIVE); URINE NITRITE Negative (NEGATIVE); URINE PROTEIN Negative (NEGATIVE); URINE UROBILINOGEN 0.2 mg/dL (0.2-1.0)
[2025-08-14 03:14] LABS: HCV DIAGNOSTIC IN-HOUSE W/RFLX NON-REACTIVE (NONREACTIVE); HIV INTERPRETATION NEGATIVE (NEGATIVE)
== END 2025-08-14 04:08 | disposition home or self-care (01) ==
LOC: JER 01:14
PROC: 3E033GC Introduction of Other Therapeutic Substance into Peripheral Vein, Percutaneous Approach (ICD-10-PCS; principal; 2025-08-14)
PROC: 3E033GC Introduction of Other Therapeutic Substance into Peripheral Vein, Percutaneous Approach (ICD-10-PCS; 2025-08-14)
PROC: 3E033NZ Introduction of Analgesics, Hypnotics, Sedatives into Peripheral Vein, Percutaneous Approach (ICD-10-PCS; 2025-08-14)
DX: K92.2 Gastrointestinal hemorrhage, unspecified (principal); S46.812A Strain of other muscles, fascia and tendons at shoulder and upper arm level, left arm, initial encounter; K92.0 Hematemesis; R05.9 Cough, unspecified; R06.02 Shortness of breath; M54.6 Pain in thoracic spine; R30.0 Dysuria; X50.9XXA Other and unspecified overexertion or strenuous movements or postures, initial encounter
CPT/HCPCS: 36415; 71045-TC-FY; 80053; 81003; 85025; 86803; 87389; 99284-25